=== PATIENT | female | born 1970 | race Caucasian/White ===

== ENCOUNTER 2021-08-02 18:04 | Emergency (ER) | payer OTHER ==
[2021-08-02 19:53] VITALS: BP 114/78; PULSE 85; TEMP 98.9; BMI 46.7
== END 2021-08-02 21:10 | disposition home or self-care (01) ==
LOC: JER 18:04
DX: J06.9 Acute upper respiratory infection, unspecified (principal); Z11.52 Encounter for screening for COVID-19
CPT/HCPCS: 71045-TC-FY; 87880; 99284-25; C9803; U0003; U0005